=== PATIENT | female | born 1960 | race Caucasian/White ===

== ENCOUNTER 2018-03-11 08:25 | Outpatient (CLI) | payer BC, SELFPAY ==
--- NOTE | 2018-03-11 08:21 | DI.RAD_ITS ---
SYMPTOM/DIAGNOSIS: LT SHOULDER PAIN LEFT SHOULDER: Three views. No priors. There are mild hypertropic changes seen at the acromioclavicular joint. The glenohumeral joint appears well maintained. The bones are intact. There does appear to be mild osteopenia present. No suspicious lytic or sclerotic lesions are seen The soft tissues are unremarkable. IMPRESSION: Mild degenerative changes of the left acromioclavicular joint
== END 2018-03-11 08:45 ==
PROVIDERS: PCP General Practice; Visit Provider Physician Assistant
DX: M25.512 Pain in left shoulder (principal); M19.012 Primary osteoarthritis, left shoulder
CPT/HCPCS: 73030

== ENCOUNTER 2019-04-22 14:03 | Outpatient (REF) | payer OTHER, SELFPAY ==
[2019-04-22 17:23] LABS: ALT 18 U/L (14-59); AST 17 U/L (15-37); Anion Gap 9.4 mmol/L (3-11); BUN 19 mg/dL (7-18); CO2 28.6 mmol/L (21.0-32.0); CREATININE 0.93 mg/dL (0.55-1.02); Calcium 9.1 mg/dL (8.5-10.1); Chloride 105 mmol/L (98-107); Glucose 107 mg/dL (74-106); Potassium 4.4 mmol/L (3.5-5.1); Sodium 143 mmol/L (136-145)
[2019-04-22 18:06] LABS: ESR 11 mm/hr (0-30)
[2019-04-24 10:08] LABS: Cyclic Citrullinated Peptide <2.5 U/mL (<5.0)
[2019-04-24 12:37] LABS: ANA Interpretation Negative (Negative)
== END 2019-04-22 14:23 ==
LOC: NCHCN 14:03
PROVIDERS: PCP Student in an Organized Health Care Education/Training Program; Visit Provider Nurse Practitioner Family
DX: Z51.81 Encounter for therapeutic drug level monitoring (principal); M25.50 Pain in unspecified joint
CPT/HCPCS: 80048; 85652; 86200; 84450; 84460; 86038; 86431

== ENCOUNTER 2019-09-25 09:29 | Emergency (ER) | payer OTHER, SELFPAY ==
[2019-09-25 09:44] VITALS: BP 142/91; PULSE 61; RESP 18; TEMP 36.2; O2SAT 99
--- NOTE | 2019-09-25 10:15 | DI.US_ITS ---
EXAM: US ABDOMEN CLINICAL HISTORY: ruq abdominal pain TECHNIQUE: Ultrasound performed using standard protocol. COMPARISON: No exams were available for comparison FINDINGS: The liver is normal in size and echogenicity. A 2.2 centimeter simple cyst is seen in the left lobe of the liver. The gallbladder has a normal appearance, without evidence of stones or wall thickenin g. No biliary dilatation is seen. There are 2 large cysts seen at the upper and lower poles of the right kidney. No hydronephrosis is seen. Left kidney is unremarkable. The aorta is normal in diame ter. The spleen is normal in size. The pancreas is unremarkable as visualized. IMPRESSION: Right renal cysts and liver cyst. No acute abnormality. DATA REPOSITORY:
--- NOTE | 2019-09-25 10:24 | ED.GENADUL_ITS ---
Discharge Plan Disposition Patient Disposition: HOME Discharge Details Chief Complaint: Nk/Back Pain Clinical Impression: Renal cyst, right, Liver cyst, Ovarian cyst, Back pain, Abdominal pain Primary Care Provider: Raymond Richardson ED Provider: Gianluca Villegas Home Meds and New Rx's Prescriptions: Continued montelukast [Singulair] 10 MG tablet 10 mg PO DAILY RF: 0 FLEXERIL 10 MG tablet 10 mg PO DAILY RF: 0 fluoxetine 20 MG capsule 20 mg PO DAILY RF: 0 calcium carbonate-vitamin D3 1 EACH tablet 1 ea PO DAILY RF: 0 melatonin 10 MG tablet 10 mg PO DAILY RF: 0 sumatriptan succinate [Imitrex] 100 MG tablet 100 mg PO ONCE RF: 0 propranolol 20 mg Tablet 20 mg PO DAILY RF: 0 Discharge Instructions Instructions: Kidney Cyst (ED) Additional Instructions: Please take ibuprofen over the counter. Take 600mg by mouth every 6 hours as needed for pain. Please take acetaminophen (tylenol) - 650mg every 6 hours by mouth as needed for pain. Please contact your primary care physician to arrange follow-up. Return to the ER for any worsening or new concerning symptoms. Stand Alone Forms: Work Release Discharge Data Discharge Date/Time-TO BE ENTERED AT DEPARTURE: 09/25/19 16:02 Medical Decision Making 1030??59-year-old female here with severe right upper quadrant abdominal pain back pain that started this morning and has progressed. Patient is focally tender in the right upper quadrant. A bedside [id number] ultrasound was performed by me. I was able to visualize the gallbladder which did not appear to have any pericholecystic fluid. There was a questionable hyperechoic stone noted. Plan to obtain official right upper quadrant abdominal ultrasound. Will check LFTs and lipase. Of note, colon did appear slightly dilated. We will give Dilaudid 0.5 mg IV for pain. Will give Zofran 4 mg IV for nausea. IV fluid bolus. 1330 --labs reviewed and nondiagnostic. patient reassessed and pain initially improved and now returns requesting additional pain medication. Will give additional dose of Dilaudid IV. Ultrasound of the right upper quadrant was interpreted by radiology: Right renal cyst and liver cyst. No acute abnormality. Plan to proceed to CT the abdomen pelvis to assess for acute surgical pathology. 1515 --CT the abdomen pelvis was interpreted by radiology:Impression: Liver cysts. Two large right renal cysts. No evidence of hydronephrosis. Right ovarian cyst. Unclear etiology for multiple cystic structures. Patient reassessed and pain improved. Patient is stable. Plan for outpatient follow-up with PCP. Usual and customary discharge instructions were reviewed with the patient. HPI General Mode of arrival: ambulatory . Date/Time Provider Initiated Documentation: 09/25/19 09:48 . Limitations to Documentation: no limitations . Information obtained by: patient . HPI Narrative: 59-year-old female presents with chief complaint of abdominal pain. Patient notes she woke this morning with right mid back pain that she thought was a muscle strain. Pain persisted and then started to wrap around to her right upper abdomen. Pain has persisted. She is had associated nausea and vomiting. Pain is currently moderate to severe. No modifiers. She did have a normal bowel movement early this morning. No associated fever. She has had back pain in the past but is never had pain in her abdomen like this. No prior abdominal surgeries. Related Data Home Medications Medication Instructions Recorded Confirmed Flexeril 10 mg PO DAILY 08/28/13 09/25/19 montelukast [Singulair] 10 mg PO DAILY tab-cap 08/28/13 09/25/19 calcium carbonate-vitamin D3 1 ea PO DAILY 01/08/17 09/25/19 fluoxetine 20 mg PO DAILY tab-cap 01/08/17 09/25/19 melatonin 10 mg PO DAILY 01/08/17 09/25/19 sumatriptan succinate [Imitrex] 100 mg PO ONCE tab-cap 03/08/17 09/25/19 propranolol 20 mg PO DAILY 09/25/19 09/25/19 Allergies Allergy/AdvReac Type Severity Reaction Status Date / Time amoxicillin Allergy Intermediate RASH Unverified 09/25/19 09:48 cefaclor [From Ceclor] Allergy Intermediate RASH Unverified 09/25/19 09:48 cephalexin monohydrate Allergy Intermediate RASH Unverified 09/25/19 09:48 [From Keflex] erythromycin base Allergy Intermediate RASH Unverified 09/25/19 09:48 Penicillins Allergy Intermediate RASH Unverified 09/25/19 09:48 sulfamethoxazole Allergy Intermediate RASH Unverified 09/25/19 09:48 [From Bactrim] trimethoprim [From Bactrim] Allergy Intermediate RASH Unverified 09/25/19 09:48 aspirin AdvReac Other (See Unverified 09/25/19 09:49 Comment) General Stated Complaint: Nk/Back Pain ALO: 3 Review of Systems All systems reviewed & are unremarkable except as noted in HPI and below Constitutional Constitutional: Denies fever(s) Cardiovascular Cardiovascular: Denies dyspnea Respiratory Respiratory: Denies dyspnea Gastrointestinal Gastrointestinal: Reports as per HPI Genitourinary Genitourinary: Denies hematuria and Denies dysuria PFSH Surgical History Cervical Procedure Cryo due to friable cvx Dilation and curettage with SAB Ligation of fallopian tube Social History Smoking/Tobacco Use Status: Never Alcohol Intake: current Alcohol Intake frequency: holidays/special occasions only Drug use: Never Substance use type: does not use Do you feel safe at home: Yes Do you feel safe in your relationship?: Yes Exam Const General: cooperative and no acute distress HENMT Mouth: moist mucous membranes Eyes Conjunctivae: normal conjunctivae Sclera: normal sclerae Neck Neck: trachea midline and supple Resp Auscultation: clear to auscultation bilaterally, no rales, no rhonchi and no wheezes Cardio Jugular venous pressure: no JVD Rate: regular rate and not tachycardic Rhythm: regular rhythm GI Inspection: non-distended Palpation: soft, not firm, no guarding, no masses, not rigid and tender in the RUQ; with no rebound tenderness and Rovsing's sign negative Auscultation: normal bowel sounds Skin General skin exam: no rashes or lesions noted Neuro General: patient alert, patient awake and tone normal Extrem General: no edema Psych Appearance: grossly normal Mental Status: mental status grossly normal Course Vital Signs Vital signs: Vital Signs Temperature 36.2 C L 09/25/19 09:44 Pulse 61 09/25/19 09:44 Respiratory Rate 18 09/25/19 09:44 Blood Pressure 142/91 H 09/25/19 09:44 Pulse Oximetry 99 09/25/19 09:44 Temperature 36.2 C L 09/25/19 09:44 Temperature Source Temporal Artery Scan 09/25/19 09:44 Pulse 61 09/25/19 09:44 Respiratory Rate 18 09/25/19 09:44 Respiratory Effort Non-Labored 09/25/19 09:51 Blood Pressure 142/91 H 09/25/19 09:44 Blood Pressure Position Sitting 09/25/19 09:44 Pulse Oximetry 99 09/25/19 09:44 Oxygen Delivery Method Room Air 09/25/19 09:44 Oxygen Flow Rate 0 09/25/19 09:44 Pain Level 10 09/25/19 09:44
[2019-09-25] MEDS: Lactated Ringers 1,000 ML 1000 ML IV (10:31)
[2019-09-25] MEDS: HYDROmorphone 2 MG/ML VIAL 0.5 MG IVP (10:32)
[2019-09-25] MEDS: Ondansetron 4 MG/2 ML VIAL IVP (10:33)
[2019-09-25 10:45] LABS: Lactate 1.4 mmol/L (0.6-1.4)
[2019-09-25 11:05] LABS: ALT 18 U/L (14-59); AST 19 U/L (15-37); Albumin 3.7 g/dL (3.4-5.0); Alkaline Phosphatase 83 U/L (46-116); Anion Gap 3.4 mmol/L (3-11); BUN 15 mg/dL (7-18); CO2 25.6 mmol/L (21.0-32.0); CREATININE 1.08 mg/dL (0.55-1.02); Calcium 8.8 mg/dL (8.5-10.1); Chloride 101 mmol/L (98-107); Estimated GFR 51.58 (mL/min/1.73m2); Glucose 121 mg/dL (74-106); Lipase 145 U/L (73-393); Potassium 3.8 mmol/L (3.5-5.1); Sodium 130 mmol/L (136-145); Total Protein 6.9 g/dL (6.4-8.2)
[2019-09-25 11:08] LABS: Troponin I < 0.05 ng/mL (<0.06)
[2019-09-25 11:33] LABS: Bilirubin Negative (Negative); Blood Negative (Negative); Glucose Negative (Negative); Ketones Negative (Negative); Leukocyte Esterase Negative (Negative); Nitrite Negative (Negative); Urobilinogen 0.2 EU/dL (Up TO 0.2); pH 7.5 (5-8)
[2019-09-25 11:34] LABS: Clarity Sl. Cloudy (Clear)
[2019-09-25 11:46] LABS: Abs Immature Grans 0.02 k/cumm (0.0-0.09); Absolute Basophil Count 0.02 k/cumm (0.0-0.2); Absolute Eosinophil Count 0.11 k/cumm (0.0-0.7); Absolute Lymphocyte Count 1.42 k/cumm (1.2-3.4); Absolute Monocyte Count 0.43 k/cumm (0.11-0.7); Basophils % 0.3; Eosinophils % 1.9; HCT 43.3 % (36.0-46.0); HGB 14.8 g/dL (12.0-15.5); Immature Grans % 0.3 %; Lymphocytes % 24.1; Mean Corp. HGB Concentration 34.2 g/dL (32.0-36.0); Mean Corpuscular Hemoglobin 31.2 pg (27.0-33.0); Mean Corpuscular Volume 91.2 fL (80-95); Mean Platelet Volume 10.4 fL (8.0-11.0); Monocytes % 7.3; Neutrophils % 66.1; Platelet Count 272 x1000/uL (130-400); RBC 4.75 m/cumm (4.00-5.20); RBC Distribution Width 12.8 % (11.7-14.6)
--- NOTE | 2019-09-25 12:00 | DI.CT_ITS ---
EXAM: CT ABDOMEN PELVIS W CLINICAL HISTORY: abdominal pain RUQ, cyst on ultrasound. TECHNIQUE: Imaging Protocol: Axial computed tomography images with coronal and sagittal reformatted images were created and reviewed CONTRAST MATERIAL: Intravenous: Omnipaque 350 Contrast volume:91 cc Oral: no COMPARISON: US US ABDOMEN from 09/25/2019 FINDINGS: ABDOMEN: Lung Bases: Dependent changes. Liver: Normal density. 2.8 centimeters simple appearing cyst at the superior left lobe of the liver. 7 millimeter cyst seen in the inferior right lobe. No suspicious masses. Gallbladder and biliary tract: No radiodense calculus or dilation. Pancreas: Normal density, no abnormal calcifications or inflammatory process. Spleen: Normal. Kidneys: Normal size, contour and axis. No radiodense stones or obstructive uropathy. No masses seen. 7.2 centimeters cyst at the upper pole of the right kidney. 7.9 centimeters cyst at the lower pole the right kidney. Small cysts are seen in the left kidney. Adrenal glands: No masses seen. Abdominal Aorta: Abdominal portion non-dilated. PELVIS: Bladder: Symmetric distention, no gross wall thickening. Bowel: No obstruction or bowel wall thickening. Normal appendix. Moderate quantity of stool. Peritoneal cavity: No ascites, collection or mesenteric inflammatory response. Bones: Degenerative disc changes at L5-S1. Nerve root sheath cyst at S2.. Reproductive organs: 3.8 centimeter simple appearing cyst of the right ovary. Left ovary is unremark able. A small anterior myometrial fibroid is visible.. Lymph nodes: Unremarkable. Impression: Liver cysts. Two large right renal cysts. No evidence of hydronephrosis. Right ovarian cyst.. RADIATION DOSE DELIVERED: 770.03mGy.cm Total DLP DATA REPOSITORY: All CT scans at this facility are submitted to the National Radiology Data Registry (NRDR) Dose Index Registry (DIR) with the [employer] (ACR). RADIATION OPTIMIZATION: All CT scans at this facility use at least one of these dose optimization te chniques: automated exposure control; mA and/or kV adjustment per patient size (includes targeted exa ms where dose is matched to clinical indication); or iterative reconstruction.
[2019-09-25 12:06] VITALS: BP 107/71; PULSE 67; RESP 18; O2SAT 95
[2019-09-25] MEDS: HYDROmorphone 2 MG/ML VIAL 1 MG IVP (12:22)
[2019-09-25] MEDS: Omnipaque 350 MG/ML 100 ML BTL IJ (13:45)
[2019-09-25] MEDS: Normal Saline - Diluent 50 ML VIAL IV (13:46)
[2019-09-25 14:32] VITALS: BP 102/66; PULSE 72; RESP 17; TEMP 36.6; O2SAT 96
== END 2019-09-25 16:02 | disposition home or self-care (01) ==
PROVIDERS: Emergency Provider Student in an Organized Health Care Education/Training Program; PCP Student in an Organized Health Care Education/Training Program
DX: R10.13 Epigastric pain (principal); M54.6 Pain in thoracic spine; K76.89 Other specified diseases of liver; N28.1 Cyst of kidney, acquired; N83.291 Other ovarian cyst, right side
CPT/HCPCS: 36415; 80053; 83690; 96361; 96374; 96375; 96376; 99285; 74177; 76700; 81003; 83605; 84484; 85025; 99284; J2405; J3490

== ENCOUNTER 2019-10-28 16:19 | Outpatient (REF) | payer OTHER, SELFPAY ==
[2019-10-28 20:46] LABS: Anion Gap 8.8 mmol/L (3-11); BUN 22 mg/dL (7-18); CO2 26.2 mmol/L (21.0-32.0); CREATININE 1.03 mg/dL (0.55-1.02); Calcium 8.9 mg/dL (8.5-10.1); Chloride 103 mmol/L (98-107); Estimated GFR 54.48 (mL/min/1.73m2); Glucose 100 mg/dL (74-106); Potassium 4.1 mmol/L (3.5-5.1); Sodium 138 mmol/L (136-145)
== END 2019-10-28 16:39 ==
LOC: NCHCN 16:19
PROVIDERS: PCP Family Medicine; Visit Provider Nurse Practitioner Family
DX: N28.1 Cyst of kidney, acquired (principal); E87.1 Hypo-osmolality and hyponatremia
CPT/HCPCS: 80048

== ENCOUNTER 2019-11-08 10:05 | Emergency (ER) | payer OTHER, SELFPAY ==
--- NOTE | 2019-11-08 10:00 | DI.RAD_ITS ---
EXAM: XR FOOT LT COMPLETE CLINICAL HISTORY: fall, pain over 3,4,5 metatarsal TECHNIQUE: COMPARISON: No exams were available for comparison FINDINGS: Three views were obtained. There is a comminuted moderately displaced fracture of 4th metatarsal taurus physis with an associated mildly displaced fracture of the 5th metatarsal distal diaphysis. No addit ional fracture seen. IMPRESSION:
--- NOTE | 2019-11-08 10:06 | ED.GENADUL_ITS ---
Discharge Plan Disposition Patient Disposition: HOME Condition: Good Discharge Details Chief Complaint: Orthopedic Clinical Impression: Foot fracture, left Primary Care Provider: Ashley Amaro ED Provider: Jessie Oh Home Meds and New Rx's Prescriptions: Continued montelukast [Singulair] 10 MG tablet 10 mg PO DAILY RF: 0 FLEXERIL 10 MG tablet 10 mg PO DAILY RF: 0 fluoxetine 20 MG capsule 20 mg PO DAILY RF: 0 calcium carbonate-vitamin D3 1 EACH tablet 1 ea PO DAILY RF: 0 melatonin 10 MG tablet 10 mg PO DAILY RF: 0 sumatriptan succinate [Imitrex] 100 MG tablet 100 mg PO ONCE RF: 0 propranolol 20 mg Tablet 20 mg PO DAILY RF: 0 dexamethasone 4 mg Tablet 4 mg PO PRNRF: 0 Discharge Instructions Instructions: Foot Fracture in Adults (ED) Additional Instructions: Encourage rest, ice, elevation. Tylenol and/or ibuprofen as needed for discomfort. Please continue with the postoperative shoe and crutches until reevaluated by orthopedics. Please call orthopedics on Sunday to schedule follow-up appointment. If you develop new or worsening symptoms please seek care urgently Referrals: Ashley Amaro [Primary Care Provider] - Young Mccurdy MD [ [facility] STAFF PHYSICIAN] - Medical Decision Making Patient is a pleasant 59-year-old female presented with chief complaint of left foot pain. She reports a prior to arrival she was going upstairs carrying a vacuum when she missed stepped and suffered a internal rotational injury to the left foot. She indicates the third, fourth and fifth metatarsals area of discomfort. Also notable swelling to the lateral aspect of the foot. She denies any numbness or tingling. She denies other injury the time of the incident. On exam, patient is resting comfortably. She has notable swelling as indicated. 2+ distal pulses, brisk capillary refill, sensation is intact. She is no pain in the arch with palpation. No pain at the ankle or Achilles. Plan for imaging. She did take Advil prior to arrival, will augment with Tylenol. XR reviewed by radiologist: FINDINGS: Bones/joints: There is a comminuted fracture involving the 4th digit metatarsal with moderate displacement of the bony fragments. Minimally displaced comminuted fracture of the 5th digit metatarsal. No other acute fractures or dislocation. Scattered bony degenerative changes. Soft tissues: Prominent soft tissue swelling about sites of injury. IMPRESSION: Comminuted acute appearing fractures of the 4th and 5th metatarsals. 50 findings with the patient. I encouraged rest, ice, elevation. Tylenol and/or ibuprofen as needed for discomfort. She will be fitted with a postop shoe. She does have crutches and will remain nonweightbearing. Patient was given return precautions. Dr. barahona plans to see her on Sunday. She will call to schedule appointment. All of her questions and concerns were addressed and she is in agreement this plan. HPI General Mode of arrival: wheelchair . Date/Time Provider Initiated Documentation: 11/08/19 10:06 . Limitations to Documentation: no limitations . Information obtained by: patient and RN notes reviewed . History of Present Illness 59 year old F presents to the emergency department with the chief complaint of left foot pain, described as moderate, Quality is described as aching, and is localized to the left. Patient reports no radiation. Patient started experiencing this minute(s) and it has been constant. Immobilization improves symptom(s), Movement worsens symptoms . Patient notes no other symptoms.. Patient did receive the following treatments prior to arrival, NSAID Related Data Home Medications Medication Instructions Recorded Confirmed Flexeril 10 mg PO DAILY 08/28/13 11/08/19 montelukast [Singulair] 10 mg PO DAILY tab-cap 08/28/13 11/08/19 calcium carbonate-vitamin D3 1 ea PO DAILY 01/08/17 11/08/19 fluoxetine 20 mg PO DAILY tab-cap 01/08/17 11/08/19 melatonin 10 mg PO DAILY 01/08/17 11/08/19 sumatriptan succinate [Imitrex] 100 mg PO ONCE tab-cap 03/08/17 11/08/19 propranolol 20 mg PO DAILY 09/25/19 11/08/19 dexamethasone 4 mg PO PRN 11/08/19 Allergies Allergy/AdvReac Type Severity Reaction Status Date / Time amoxicillin Allergy Intermediate RASH Unverified 11/08/19 10:14 cefaclor [From Ceclor] Allergy Intermediate RASH Unverified 11/08/19 10:14 cephalexin monohydrate Allergy Intermediate RASH Unverified 11/08/19 10:14 [From Keflex] erythromycin base Allergy Intermediate RASH Unverified 11/08/19 10:14 Penicillins Allergy Intermediate RASH Unverified 07/11/20 10:14 sulfamethoxazole Allergy Intermediate RASH Unverified 11/08/19 10:14 [From Bactrim] trimethoprim [From Bactrim] Allergy Intermediate RASH Unverified 11/08/19 10:14 aspirin AdvReac Other (See Unverified 11/08/19 10:14 Comment) General ALO: 3 Review of Systems Constitutional Constitutional: Reports as per HPI, Denies chills, Denies fever(s), Denies headache(s) and Denies weakness ENT Ears, Nose, Mouth, and Throat: Denies headache(s) Cardiovascular Cardiovascular: Reports as per HPI Respiratory Respiratory: Reports as per HPI and Denies cough Musculoskeletal Musculoskeletal: Reports as per HPI, Reports abnormal gait (difficulty ambulating secondary to left foot pain) and Denies tingling Integumentary/Breasts Skin/Breast: Reports as per HPI, Denies rash and Denies wounds Neurologic Neurologic: Reports as per HPI, Reports abnormal gait (difficulty ambulating secondary to left foot pain), Denies headache(s), Denies tingling, Denies paresthesias and Denies weakness [facility] Surgical History Cervical Procedure Cryo due to friable cvx Dilation and curettage with SAB Ligation of fallopian tube Social History Smoking/Tobacco Use Status: Never Alcohol Intake: current Alcohol Intake frequency: holidays/special occasions only Drug use: Never Substance use type: does not use Do you feel safe at home: Yes Do you feel safe in your relationship?: Yes Exam Const General: cooperative, healthy appearing, comfortable, no acute distress, well developed and well groomed Nutritional Appearance: average body habitus and well nourished Orientation: alert and awake Resp Effort & Inspection: normal respiratory effort, able to speak in complete sentences and no respiratory distress Cardio Rate: regular rate Rhythm: regular rhythm Skin General skin exam: no rashes or lesions noted Lesions: no lesions Rashes: no rashes Trauma: no lacerations or abrasions Neuro General: patient alert and patient awake Cognition: normal cognition Speech: speech normal Gait: normal gait Motor: muscle tone normal throughout Sensory Exam: no sensory deficits noted Extrem Ankle/foot/toe images: 1. area of swelling and pain. No palpable deformity. Able to range toes although this causes pain. Brisk capillary refill, sensation intact. Pain starts at proximal 5th metatarsal. 2+ distal pulses. No pain with palpation over the midfoot dorsal or plantar side. No pain with palpation of the ankle,no swelling. Achilles normal. Psych Appearance: grossly normal and well kempt Mental Status: mental status grossly normal Speech and Movement: speech and movement normal
[2019-11-08 10:11] VITALS: BP 132/87; PULSE 77; RESP 16; TEMP 36.7; O2SAT 98
[2019-11-08] MEDS: Acetaminophen 500 MG TAB 1000 MG PO (10:15)
--- NOTE | 2019-11-08 10:51 | DI.VRAD_ITS ---
PROCEDURE INFORMATION: Exam: XR Left Foot Complete Exam date and time: 11/08/2019 10:33 AM Age: 59 years old Clinical indication: Other: Fall, pain over 3,4,5 metatarsals TECHNIQUE: Imaging protocol: XR Left foot. Views: 3 or more views. COMPARISON: No relevant images were readily available for comparison purposes. FINDINGS: Bones/joints: There is a comminuted fracture involving the 4th digit metatarsal with moderate displacement of the bony fragments. Minimally displaced comminuted fracture of the 5th digit metatarsal. No other acute fractures or dislocation. Scattered bony degenerative changes. Soft tissues: Prominent soft tissue swelling about sites of injury. IMPRESSION: Comminuted acute appearing fractures of the 4th and 5th metatarsals. Dictated and Authenticated by: Nathan Harris MD. Ordering:KIERAN Roman MD
== END 2019-11-08 11:24 | disposition home or self-care (01) ==
PROVIDERS: Emergency Provider Physician Assistant; PCP Family Medicine
DX: S92.342A Displaced fracture of fourth metatarsal bone, left foot, initial encounter for closed fracture (principal); S92.352A Displaced fracture of fifth metatarsal bone, left foot, initial encounter for closed fracture; W10.8XXA Fall (on) (from) other stairs and steps, initial encounter
CPT/HCPCS: 28470; 73630

== ENCOUNTER 2019-12-02 15:50 | Outpatient (CLI) | payer OTHER, SELFPAY ==
--- NOTE | 2019-12-02 13:45 | DI.RAD_ITS ---
EXAM: XR FOOT LT LIMITED CLINICAL HISTORY: fu left foot fracture TECHNIQUE: COMPARISON: CR,XR XR FOOT LT COMPLETE from 11/08/2019 FINDINGS: Two views were obtained. Previous described fractures 4th and 5th metatarsals are again noted with l ittle interval change in appearance in comparison with the prior radiographs of November 07. There is increasing callus formation the fracture sites. IMPRESSION:
== END 2019-12-02 16:10 ==
PROVIDERS: PCP Family Medicine; Referring Provider Family Medicine; Visit Provider Student in an Organized Health Care Education/Training Program
DX: S92.342D Displaced fracture of fourth metatarsal bone, left foot, subsequent encounter for fracture with routine healing (principal); S92.352D Displaced fracture of fifth metatarsal bone, left foot, subsequent encounter for fracture with routine healing
CPT/HCPCS: 73620

== ENCOUNTER 2020-01-06 14:09 | Outpatient (CLI) | payer OTHER, SELFPAY ==
--- NOTE | 2020-01-06 13:39 | DI.RAD_ITS ---
EXAM: XR FOOT LT COMPLETE INDICATION: f/u fracture. COMPARISON: No exams were available for comparison TECHNIQUE: 2D digital imaging was performed. FINDINGS: There has been no change in the alignment of the fractures of the distal 4th and 5th metatarsals. Th ere is increased callus formation around the fractures indicating further healing. DATA REPOSITORY: RADIATION DOSE DELIVERED:
== END 2020-01-06 14:29 ==
PROVIDERS: PCP Family Medicine; Referring Provider Family Medicine; Visit Provider Student in an Organized Health Care Education/Training Program
DX: S92.342D Displaced fracture of fourth metatarsal bone, left foot, subsequent encounter for fracture with routine healing (principal); S92.352D Displaced fracture of fifth metatarsal bone, left foot, subsequent encounter for fracture with routine healing
CPT/HCPCS: 73630

== ENCOUNTER 2020-01-12 14:06 | Outpatient (REF) | payer SELFPAY ==
[2020-01-15 13:36] LABS: Patient Race White; SARS-CoV-2 RNA Undetected (Undetected); SARS-CoV-2 Specimen Source Nasal
== END 2020-01-12 14:26 ==
LOC: NCHCN 14:06
PROVIDERS: PCP Family Medicine; Visit Provider Family Medicine
DX: Z20.828 Contact with and (suspected) exposure to other viral communicable diseases (principal)
CPT/HCPCS: U0003

== ENCOUNTER 2020-02-03 00:45 | Outpatient (CLI) | payer OTHER, SELFPAY ==
--- NOTE | 2020-02-03 | DI.MAMMO_ITS ---
EXAM: MAMMO SCREENING CLINICAL HISTORY: SCREENING,Z12.39 TECHNIQUE: Mammograms were interpreted according to the usual protocol including computer analysis w [employer] CAD system, tomosynthesis and C-view imaging. COMPARISON: FINDINGS: The breasts are of moderate density with fairly symmetrical distribution of fibroglandular tissue. N o dominant mass or clumped microcalcification is identified in either breast. The current examinatio n is compared with previous examination August 2013 and there has been no gross interval change in appea janene in comparison with the prior study. IMPRESSION: No specific evidence of malignancy at this time. Routine screening examinations are suggested at yea rly intervals in this age group according to the ACS ACR guidelines. BI-RADS Cat 1 - Negative Breast Density - Category B - Scattered areas of fibroglandular density
== END 2020-02-03 01:05 ==
PROVIDERS: PCP Family Medicine; Visit Provider Nurse Practitioner Family
DX: Z12.31 Encounter for screening mammogram for malignant neoplasm of breast (principal)
CPT/HCPCS: 77063; 77067

== ENCOUNTER 2020-03-15 15:15 | Outpatient (REF) | payer SELFPAY ==
[2020-03-18 09:04] LABS: SARS-CoV-2 RNA Not Detected (NotDetected); SARS-CoV-2 RNA Source Nasal/Nares
== END 2020-03-15 15:35 ==
LOC: NCHCN 15:15
PROVIDERS: PCP Family Medicine; Visit Provider Nurse Practitioner Family
DX: Z11.59 Encounter for screening for other viral diseases (principal)
CPT/HCPCS: U0003

== ENCOUNTER 2020-03-17 17:21 | Outpatient (REF) | payer OTHER, SELFPAY ==
[2020-03-17 22:11] LABS: ALT 17 U/L (14-59); AST 14 U/L (15-37); Albumin 3.6 g/dL (3.4-5.0); Alkaline Phosphatase 106 U/L (46-116); Anion Gap 6.9 mmol/L (3-11); BUN 21 mg/dL (7-18); Bilirubin, Total 0.6 mg/dL (0.2-1.0); CO2 28.1 mmol/L (21.0-32.0); Chloride 103 mmol/L (98-107); Estimated GFR 56.18 (mL/min/1.73m2); Glucose 121 mg/dL (74-106); Potassium 5.1 mmol/L (3.5-5.1); Sodium 138 mmol/L (136-145); Total Protein 6.5 g/dL (6.4-8.2)
== END 2020-03-17 17:41 ==
LOC: NCHCN 17:21
PROVIDERS: PCP Family Medicine; Visit Provider Nurse Practitioner Family
DX: E87.1 Hypo-osmolality and hyponatremia (principal); N28.1 Cyst of kidney, acquired
CPT/HCPCS: 80048; 80076

== ENCOUNTER 2020-10-01 16:17 | Outpatient (REF) | payer OTHER, SELFPAY ==
[2020-10-01 21:16] LABS: ALT 21 U/L (14-59); AST 15 U/L (15-37); Albumin 3.7 g/dL (3.4-5.0); Alkaline Phosphatase 94 U/L (46-116); Bilirubin, Total 0.6 mg/dL (0.2-1.0); Total Protein 6.5 g/dL (6.4-8.2)
[2020-10-01 21:25] LABS: Bilirubin, Direct 0.1 mg/dL (0.0-0.2)
== END 2020-10-01 16:18 | disposition home or self-care (01) ==
LOC: NCHCN 16:17
PROVIDERS: PCP Family Medicine; Visit Provider Nurse Practitioner Family
DX: E87.1 Hypo-osmolality and hyponatremia (principal); N28.1 Cyst of kidney, acquired; K76.89 Other specified diseases of liver
CPT/HCPCS: 80076

== ENCOUNTER 2020-10-07 15:18 | Outpatient (REF) | payer OTHER, SELFPAY ==
[2020-10-07 20:51] LABS: Anion Gap 8.6 mmol/L (3-11); BUN 19 mg/dL (7-18); CO2 28.4 mmol/L (21.0-32.0); Calcium 9.1 mg/dL (8.5-10.1); Chloride 106 mmol/L (98-107); Estimated GFR 56.18 (mL/min/1.73m2); Glucose 87 mg/dL (74-106); Potassium 4.6 mmol/L (3.5-5.1); Sodium 143 mmol/L (136-145)
== END 2020-10-07 15:19 | disposition home or self-care (01) ==
LOC: NCHCN 15:18
PROVIDERS: PCP Family Medicine; Visit Provider Nurse Practitioner Family
DX: E87.1 Hypo-osmolality and hyponatremia (principal); N28.1 Cyst of kidney, acquired; K76.89 Other specified diseases of liver
CPT/HCPCS: 80048

== ENCOUNTER 2020-12-01 21:20 | Outpatient (REF) | payer OTHER, SELFPAY ==
[2020-12-02 20:43] LABS: COVID-19 RT-PCR UVMMC Result Negative (Negative)
== END 2020-12-01 21:21 | disposition home or self-care (01) ==
LOC: NCHCN 21:20
PROVIDERS: PCP Family Medicine; Visit Provider Nurse Practitioner Family
DX: Z20.822 Contact with and (suspected) exposure to COVID-19 (principal)
CPT/HCPCS: U0003

== ENCOUNTER 2021-03-18 15:36 | Outpatient (REF) | payer OTHER, SELFPAY ==
[2021-03-19 11:06] LABS: COVID-19 RT-PCR UVMMC Result Negative (Negative)
== END 2021-03-18 15:37 | disposition home or self-care (01) ==
LOC: NCHCN 15:36
PROVIDERS: PCP Family Medicine; Visit Provider Nurse Practitioner Family
DX: Z20.822 Contact with and (suspected) exposure to COVID-19 (principal)
CPT/HCPCS: U0003

== ENCOUNTER 2021-03-22 14:06 | Outpatient (REF) | payer OTHER, SELFPAY ==
[2021-03-23 04:05] LABS: COVID-19 RT-PCR UVMMC Result Negative (Negative)
== END 2021-03-22 14:07 | disposition home or self-care (01) ==
LOC: NCHCN 14:06
PROVIDERS: PCP Family Medicine; Visit Provider Nurse Practitioner Family
DX: Z20.822 Contact with and (suspected) exposure to COVID-19 (principal)
CPT/HCPCS: U0003

== ENCOUNTER 2021-04-21 11:03 | Outpatient (REF) | payer OTHER, SELFPAY ==
[2021-04-21 14:46] LABS: HCT 42.5 % (36.0-46.0); MCH 30.8 pg (27.0-33.0); MCHC 32.9 % (32.0-36.0); MCV 93.6 fL (80-95); MPV 10.6 fL (8.0-11.0); Platelet Count 271 10^3/uL (130-400); RBC 4.54 10^6/uL (3.93-5.22); RDW 12.2 % (11.7-14.6); RDW-SD 42.5 fL; WBC 7.64 10^3/uL (4.4-10.8)
[2021-04-21 15:05] LABS: ALT 26 U/L (14-59); AST 12 U/L (15-37); Albumin 3.7 g/dL (3.4-5.0); Alkaline Phosphatase 86 U/L (46-116); Anion Gap 7.1 mmol/L (3-11); BUN 17 mg/dL (7-18); Bilirubin, Total 0.9 mg/dL (0.2-1.0); CO2 29.9 mmol/L (21.0-32.0); CREATININE 1.1 mg/dL (0.55-1.02); Calcium 8.9 mg/dL (8.5-10.1); Calculated LDL 168 mg/dL (<100); Chloride 105 mmol/L (98-107); Cholesterol 247 mg/dL (<200); Estimated GFR 50.17 (mL/min/1.73m2); Glucose 93 mg/dL (74-106); HDL Cholesterol 62 mg/dL (40-60); Potassium 4.3 mmol/L (3.5-5.1); Sodium 142 mmol/L (136-145); Total Protein 6.4 g/dL (6.4-8.2); Triglyceride 86 mg/dL (<150)
[2021-04-21 15:21] LABS: Vitamin D 25 Total 70.7 ng/mL (30-100)
== END 2021-04-21 11:04 | disposition home or self-care (01) ==
LOC: NCHCN 11:03
PROVIDERS: PCP Family Medicine; Visit Provider Nurse Practitioner Family
DX: Z00.00 Encounter for general adult medical examination without abnormal findings (principal); K76.89 Other specified diseases of liver; N28.1 Cyst of kidney, acquired; E78.5 Hyperlipidemia, unspecified; E87.1 Hypo-osmolality and hyponatremia; E55.9 Vitamin D deficiency, unspecified
CPT/HCPCS: 80053; 80061; 82306; 85027

== ENCOUNTER 2021-05-20 00:43 | Outpatient (CLI) | payer OTHER, SELFPAY ==
--- NOTE | 2021-05-20 09:00 | DI.DEXA_ITS ---
Exam(s) XR DEXA BONE DENSITY W/WO ANGEL EXAM: XR DEXA BONE DENSITY W/WO ANGEL CLINICAL HISTORY: OSTEOPENIA, M85.80 TECHNIQUE: BTCJam C densitometer COMPARISON: No exams were available for comparison FINDINGS: Lateral view of the thoracic and lumbar spine shows no evidence of compression fractures. Bone mineral density measurements of the lumbar spine correspond to a total T-score of -2.2, in the osteopenic range. Bone mineral density measurements of the left hip correspond to a total T-score of -1.3. The femora l neck T-score is -1.9, in the osteopenic range.. The left forearm bone mineral density measurements correspond to a T-score of the distal 3rd of -2.9, in the osteoporotic range. . IMPRESSION: Osteoporosis of the left forearm. Osteopenia of the lumbar spine and left hip.
== END 2021-05-20 01:03 ==
PROVIDERS: PCP Family Medicine; Visit Provider Nurse Practitioner Family
DX: M81.0 Age-related osteoporosis without current pathological fracture (principal); M85.88 Other specified disorders of bone density and structure, other site
CPT/HCPCS: 77080

== ENCOUNTER 2021-05-25 16:03 | Outpatient (REF) | payer OTHER, SELFPAY ==
[2021-05-26 00:27] LABS: COVID-19 RT-PCR UVMMC Result Negative (Negative)
== END 2021-05-25 16:04 | disposition home or self-care (01) ==
LOC: NCHCN 16:03
PROVIDERS: PCP Family Medicine; Visit Provider Nurse Practitioner Family
DX: Z20.822 Contact with and (suspected) exposure to COVID-19 (principal)
CPT/HCPCS: U0003

== ENCOUNTER 2021-05-31 00:14 | Outpatient (CLI) | payer OTHER, SELFPAY ==
--- NOTE | 2021-05-31 13:39 | DI.MAMMO_ITS ---
Exam(s) US BREAST RT LIMITED MG MAMMO DIAGNOSTIC BI US BREAST LT LIMITED EXAM: MG MAMMO DIAGNOSTIC BI and bilateral U/S breast limited CLINICAL HISTORY: SAIRA BREAST LUMPS, N63.0. TECHNIQUE: Craniocaudal and mediolateral oblique Full Field Digital Mammography views of the bilater al breast with Computer Aided Diagnosis followed by Tomosynthesis and bilateral breast ultrasound. COMPARISON: Priors available for comparison. FINDINGS: Mammography/Tomosynthesis: Masses/Architectural Distortion: None seen. Microcalcifictions: No suspicious pleomorphic-type are seen. Skin Thickening/Nipple Retraction: None. Bilateral limited breast US: Echotexture: Normal appearance of the glandular tissue. Shadowing: No suspicious foci. Cyst: None. Solid lesions: None seen. Ductal dilation: None. IMPRESSION: 1. No evidence of malignancy is noted. 2. Unless there is more urgent need, follow-up screening mammography is recommended, as per [employer] guidelines. 3. The findings were discussed with the patient on the date of the examination. BI-RADS Category 1 - Negative Breast Density - Category B - Scattered areas of fibroglandular density Breast density Category C or D implies that the patient has dense breast tissue. Dense breast tissue can make it harder to find cancer on a mammogram. Dense breast tissue is also associated with an incr eased risk of breast cancer. This information about the result of the mammogram report was provided to the patient to raise their awareness. Use this report when you speak with the patient about their risks for breast cancer, which includes their family history. At that time, you may recommend additional screening tests (Ultrasoun d or MRI) as these tests may add significant information. A negative radiographic report should not delay biopsy if a dominant or clinically suspicious mass is present. Up to ten percent of cancers are not identified on mammography. A negative report may reinforce clinical impression. Adenosis and dense breasts may obscure an underlying neoplasm. False positive reports average 6 to 10%. Patient will receive a letter notifying them of these results.
== END 2021-05-31 00:34 ==
PROVIDERS: PCP Family Medicine; Visit Provider Nurse Practitioner Family
DX: N63.10 Unspecified lump in the right breast, unspecified quadrant (principal); N63.20 Unspecified lump in the left breast, unspecified quadrant
CPT/HCPCS: 76642; 77062; 77066; G0279

== ENCOUNTER 2021-07-20 09:02 | Outpatient (REF) | payer OTHER, SELFPAY ==
--- NOTE | 2021-07-20 08:30 | PAPFT_PTH ---
PATIENT: Leonor Wallace LOC: [facility]#:[id number] AGE/SX: 61/F ROOM: RE07/20/[address]: Chanelle Sesay : 1960 BED: DIS: 07/20/2021 SPEC #: [id number] RECD: 07/20/21 17:26 STATUS: GRIS REMaddy #: [id number] ANTOINE: 07/20/21 08:[address]: Chanelle Sesay DEPT: [facility] Cytology RECD BY: Britney Crow ENTERED: 07/20/21 17:27 SP TYPE: PAPFT OTHR DR: Ashley Amaro Tissues: 1 - CX/ENDOCX FOR PAP SMEARS Procedures: PAP THIN PREP/[facility] Screening HPV DNA PROBE Comments: [id number] (HPV 16 & 18/45)
== END 2021-07-20 09:03 | disposition home or self-care (01) ==
LOC: NCHCN 09:02
PROVIDERS: PCP Family Medicine; Visit Provider Nurse Practitioner Family
DX: Z12.4 Encounter for screening for malignant neoplasm of cervix (principal); Z11.51 Encounter for screening for human papillomavirus (HPV); R87.810 Cervical high risk human papillomavirus (HPV) DNA test positive
CPT/HCPCS: 88142; 87624

== ENCOUNTER 2021-11-24 12:56 | Outpatient (REF) | payer OTHER, SELFPAY ==
[2021-11-24 15:16] LABS: Anion Gap 6.7 mmol/L (3-11); BUN 18 mg/dL (7-18); C-Reactive Protein 0.19 mg/dL (0.0-0.3); CO2 27.3 mmol/L (21.0-32.0); Calcium 9.6 mg/dL (8.5-10.1); Chloride 105 mmol/L (98-107); Glucose 99 mg/dL (74-106); Potassium 4.2 mmol/L (3.5-5.1); Sodium 139 mmol/L (136-145); TSH (W/Ref FT4) 1.68 uIU/mL (0.36-3.74)
[2021-11-24 15:20] LABS: ESR 9 mm/hr (0-30)
[2021-11-24 22:22] LABS: Rheumatoid Factor <8.6 IU/mL (<12.0)
[2021-11-25 10:58] LABS: Lyme Ab w Rflx to Lyme Confirm Negative (Negative)
[2021-11-25 15:28] LABS: ANA Interpretation Negative (Negative)
[2021-11-30 09:39] LABS: Anaplasma phagocytophilum Negative (Negative); B. miyamotoi PCR Negative (Negative); Babesia divergens/MO-1 Negative (Negative); Babesia duncani Negative (Negative); Babesia microti Negative (Negative); Ehrlichia chaffeensis Negative (Negative); Ehrlichia ewingii/canis Negative (Negative); Ehrlichia muris eauclairensis Negative (Negative)
== END 2021-11-24 12:57 | disposition home or self-care (01) ==
LOC: NCHCN 12:56
PROVIDERS: PCP Family Medicine; Visit Provider Nurse Practitioner Family
DX: M79.601 Pain in right arm (principal); L65.9 Nonscarring hair loss, unspecified; N28.1 Cyst of kidney, acquired; E87.1 Hypo-osmolality and hyponatremia
CPT/HCPCS: 80048; 85652; 87798; 84443; 86038; 86140; 86431; 86618

== ENCOUNTER 2022-07-04 13:47 | Outpatient (REF) | payer BC, SELFPAY ==
[2022-07-04 15:19] LABS: HCT 44.2 % (36.0-46.0); HGB 14.8 g/dL (11.2-15.7); MCH 31.5 pg (27.0-33.0); MCHC 33.5 % (32.0-36.0); MCV 94 fL (80-95); MPV 10.3 fL (8.0-11.0); Platelet Count 236 10^3/uL (130-400); RDW 12.3 % (11.7-14.6); RDW-SD 42.3 fL; WBC 6.52 10^3/uL (4.4-10.8)
[2022-07-04 15:34] LABS: ALT 29 U/L (14-59); AST 20 U/L (15-37); Alkaline Phosphatase 102 U/L (46-116); BUN 12 mg/dL (7-18); Bilirubin, Total 0.8 mg/dL (0.2-1.0); Calcium 9.7 mg/dL (8.5-10.1); Chloride 105 mmol/L (98-107); Estimated GFR 62.91 (mL/min/1.73m2); Glucose 79 mg/dL (74-106); Potassium 4.9 mmol/L (3.5-5.1); Sodium 142 mmol/L (136-145)
== END 2022-07-04 13:48 | disposition home or self-care (01) ==
LOC: NCHCN 13:47
PROVIDERS: PCP Nurse Practitioner Family; Visit Provider Nurse Practitioner Family
DX: Z00.00 Encounter for general adult medical examination without abnormal findings (principal); E55.9 Vitamin D deficiency, unspecified
CPT/HCPCS: 80053; 82306; 85027

== ENCOUNTER 2023-04-27 16:11 | Outpatient (REF) | payer BC, SELFPAY ==
[2023-04-27 21:07] LABS: Abs Immature Grans 0.02 10^3/uL (0.0-0.06); Absolute Basophil Count 0.04 10^3/uL (0.0-0.2); Absolute Eosinophil Count 0.23 10^3/uL (0.0-0.7); Absolute Lymphocyte Count 2.07 10^3/uL (1.2-3.4); Absolute Neutrophil Count 4.57 10^3/uL (1.2-6.7); Basophils % 0.5; HGB 13.3 g/dL (11.2-15.7); Immature Grans % 0.3; Lymphocytes % 27.1; MCH 31.6 pg (27.0-33.0); MCHC 34.1 % (32.0-36.0); MCV 93 fL (80-95); Monocytes % 9.2; Neutrophils % 59.9; Platelet Count 260 10^3/uL (130-400); RBC 4.21 10^6/uL (3.93-5.22); RDW 12.1 % (11.7-14.6); RDW-SD 40.9 fL; WBC 7.63 10^3/uL (4.4-10.8)
[2023-04-27 21:27] LABS: ALT 23 U/L (14-59); AST 13 U/L (15-37); Albumin 3.5 g/dL (3.4-5.0); Alkaline Phosphatase 66 U/L (46-116); Anion Gap 7.1 mmol/L (3-11); BUN 11 mg/dL (7-18); Bilirubin, Total 0.9 mg/dL (0.2-1.0); CO2 25.9 mmol/L (21.0-32.0); Calcium 9.1 mg/dL (8.5-10.1); Chloride 105 mmol/L (98-107); Estimated GFR 62.52 (mL/min/1.73m2); Glucose 116 mg/dL (74-106); Potassium 3.8 mmol/L (3.5-5.1); Sodium 138 mmol/L (136-145); TSH (W/Ref FT4) 0.91 uIU/mL (0.36-3.74); Total Protein 6.3 g/dL (6.4-8.2)
== END 2023-04-27 16:12 | disposition home or self-care (01) ==
LOC: NCHCN 16:11
PROVIDERS: PCP Nurse Practitioner Family; Visit Provider Nurse Practitioner Family
DX: R11.0 Nausea (principal)
CPT/HCPCS: 80053; 84443; 85025

== ENCOUNTER 2023-09-18 09:19 | Outpatient (REF) | payer BC, SELFPAY ==
[2023-09-18 14:29] LABS: HCT 41.6 % (36.0-46.0); MCH 31.5 pg (27.0-33.0); MCHC 33.7 % (32.0-36.0); MCV 94 fL (80-95); MPV 10.4 fL (8.0-11.0); Platelet Count 274 10^3/uL (130-400); RBC 4.44 10^6/uL (3.93-5.22); RDW 12.1 % (11.7-14.6); RDW-SD 41.9 fL; WBC 5.27 10^3/uL (4.4-10.8)
[2023-09-18 15:01] LABS: ALT 22 U/L (14-59); AST 17 U/L (15-37); Albumin 3.8 g/dL (3.4-5.0); Alkaline Phosphatase 85 U/L (46-116); Anion Gap 5.8 mmol/L (3-11); BUN 21 mg/dL (7-18); Bilirubin, Total 0.8 mg/dL (0.2-1.0); CO2 27.2 mmol/L (21.0-32.0); Calcium 9.3 mg/dL (8.5-10.1); Calculated LDL 138 mg/dL (<100); Chloride 107 mmol/L (98-107); Cholesterol 226 mg/dL (<200); Estimated GFR 62.52 (mL/min/1.73m2); Glucose 98 mg/dL (74-106); HDL Cholesterol 74 mg/dL (40-60); Potassium 4.4 mmol/L (3.5-5.1); Sodium 140 mmol/L (136-145); Total Protein 6.6 g/dL (6.4-8.2); Triglyceride 72 mg/dL (<150)
== END 2023-09-18 09:20 | disposition home or self-care (01) ==
LOC: NCHCN 09:19
PROVIDERS: PCP Nurse Practitioner Family; Visit Provider Nurse Practitioner Family
DX: E78.5 Hyperlipidemia, unspecified (principal); K76.9 Liver disease, unspecified
CPT/HCPCS: 80053; 80061; 85027

== ENCOUNTER 2023-09-21 13:48 | Outpatient (REF) | payer BC, SELFPAY ==
--- NOTE | 2023-09-21 08:00 | PAPFT_PTH ---
PATIENT: Leonor Wallace LOC: [facility]#:[id number] AGE/SX: 63/F ROOM: RE09/21/[address]: Chanelle Sesay : 1960 BED: DIS: 09/21/2023 SPEC #: [id number] RECD: 09/21/23 17:54 STATUS: GRIS REMaddy #: [id number] ANTOINE: 09/21/23 08:[address]: Chanelle Sesay DEPT: [facility] Cytology RECD BY: Britney Crow Tissues: 1 - CX/ENDOCX FOR PAP SMEARS Procedures: PAP THIN PREP/UVM Screening HPV DNA PROBE Comments: [id number]
== END 2023-09-21 13:49 | disposition home or self-care (01) ==
LOC: NCHCN 13:48
PROVIDERS: PCP Nurse Practitioner Family; Visit Provider Nurse Practitioner Family
DX: Z12.4 Encounter for screening for malignant neoplasm of cervix (principal); Z11.51 Encounter for screening for human papillomavirus (HPV); R87.610 Atypical squamous cells of undetermined significance on cytologic smear of cervix (ASC-US)
CPT/HCPCS: 88142; 87624

== ENCOUNTER → 2023-10-05 02:51 | Outpatient (CLI) | payer BC, SELFPAY ==
--- NOTE | 2023-10-05 12:54 | DI.MAMMO_ITS ---
Exam(s) MAMMO SCREENING EXAM: MAMMO SCREENING CLINICAL HISTORY: SCREENING MAMMO FOR BREAST CANCER Z12.39 TECHNIQUE: Bilateral full field digital CC and MLO mammographic images were obtained with 3D tomosyn thesis and utilizing computer aided detection (CAD). COMPARISON: Available for comparison. FINDINGS: Masses/Architectural Distortion: None seen. Microcalcifications: No suspicious pleomorphic-type are seen. Skin Thickening/Nipple Retraction: None. IMPRESSION: 1. No significant interval change with no specific features of malignancy noted. 2. Unless there is more urgent need, screening mammography is recommended, as per [employer] guidelines. BI-RADS Category 1 - Negative Breast Density - Category B - Scattered areas of fibroglandular density Breast density category C or D implies that the patient has dense breast tissue. Dense breast tissue is very common and is not abnormal but dense breast tissue can make it harder to find cancer on a ma mmogram. Also, dense breast tissue may increase their breast cancer risk. This information about the result of the mammogram report was provided to the patient to raise their awareness. Use this report when you speak with the patient about their risks for breast cancer, which includes their family hist ory. At that time, you may recommend for more screening tests (Ultrasound or MRI) as they might be us eful based on their risk. A negative radiographic report should not delay biopsy if a dominant or clinically suspicious mass is present. Up to ten percent of cancers are not identified on mammography. A negative report may reinforce clinical impression. Adenosis and dense breasts may obscure an underlying neoplasm. False positive reports average 6 to 10%. Patient will receive a letter notifying them of these results.
== END ==
PROVIDERS: PCP Nurse Practitioner Family; Visit Provider Nurse Practitioner Family
DX: Z12.31 Encounter for screening mammogram for malignant neoplasm of breast (principal)
CPT/HCPCS: 77063; 77067

== ENCOUNTER 2024-02-01 00:42 | Outpatient (CLI) | payer BC, SELFPAY ==
--- NOTE | 2024-02-01 | DI.US_ITS ---
Exam(s) US PELVIS TRANSVAGINAL EXAM: US PELVIS TRANSVAGINAL CLINICAL HISTORY: CYST OF OVARY, N83.209 TECHNIQUE: Transabdominal and transvaginal imaging was performed using standard protocol. COMPARISON: CT CT ABDOMEN PELVIS W from 09/25/2019 US US PELVIS TRANSVAGINAL from 12/06/2021 FINDINGS: UTERUS: Anteverted. 6.1 x 3.1 x 4.3 cm Endometrium: 2 mm. Small amount of fluid, 1 millimeter thickness within endometrium. Myometrium: 3 small fibroids the largest measuring 2 cm. Cervix: Unremarkable. OVARIES: Right: Cyst or mass: Stable size and appearance of right ovarian cyst from 2019. Cysts measured today at 3.8 x 3.9 x 2.3 cm. Left: Cyst or mass: None. DOPPLER: Color: Symmetric and uniform flow to both ovaries. No hyperemia. CUL-DE-SAC: Free fluid: None. IMPRESSION: 1. Normal size uterus. Thirty small fibroids. Trace fluid in the endometrium. No focal endometrial ab normality or endometrial thickening.. 2. Stable appearance of right ovarian cyst since 2019. DATA REPOSITORY:
--- NOTE | 2024-02-01 | DI.MRI_ITS ---
Exam(s) MR ABDOMEN WO/W EXAM: MR ABDOMEN WO/W CLINICAL HISTORY: COMPLEX RENAL CYST, N28.1 TECHNIQUE: Multiplanar multisequence MRI of the Abdomen was performed. CONTRAST MATERIAL: IV Contrast: 10 mL of Dotarem contrast administered. COMPARISON: CT CT ABDOMEN PELVIS W from 09/25/2019 US US RENAL from 01/04/2024 FINDINGS: The exam is mildly limited by motion artifact. Liver: Normal size. Multiple liver cysts are again noted. Pancreas: Unremarkable. Gallbladder and Bile Ducts: Unremarkable. Adrenals: Unremarkable. Kidneys: Bilateral renal cysts again noted. The recent ultrasound the questioned area of nodularity i n the large cyst at the lower pole of the right kidney. No area of nodularity or significant septati on is demonstrated on the current exam. The remaining renal cysts also appear simple. Spleen: Unremarkable. Aorta: Unremarkable. Soft Tissues: Unremarkable. Bone: Unremarkable. Lymph Nodes: Unremarkable. Lung bases: No evidence of effusions. No gross areas of consolidation. IMPRESSION: No area of nodularity is demonstrated in the large cysts noted at the lower pole of the right kidney. There are multiple right simple appearing renal cysts are all simple appearing hepatic cysts. DATA REPOSITORY:
[2024-02-01] MEDS: Normal Saline - Diluent 50 ML VIAL 25 ML IJ (08:28)
[2024-02-01] MEDS: Gadoterate meglumine 20 ML VIAL 10 ML IVP (08:29)
== END 2024-02-01 01:02 ==
LOC: DI 00:42
PROVIDERS: PCP Nurse Practitioner Family; Visit Provider Nurse Practitioner Family
DX: N28.1 Cyst of kidney, acquired (principal); N83.201 Unspecified ovarian cyst, right side
CPT/HCPCS: 74183; 76830; 76856

== ENCOUNTER 2024-04-03 10:42 | Outpatient (CLI) | payer BC, SELFPAY ==
--- NOTE | 2024-04-03 13:42 | DI.RAD_ITS ---
Exam(s) XR CHEST 2V PA LATERAL EXAM: XR CHEST 2V PA LATERAL CLINICAL HISTORY: Dyspnea, R06.00 TECHNIQUE: 2D digital imaging was performed. Two views. COMPARISON: No exams were available for comparison FINDINGS: HEART: Normal size. Aorta: Not dilated. PULMONARY VASCULATURE: Normal. MEDIASTINUM: Unremarkable. LUNGS: Clear. PLEURAL SPACE: No pleural effusion or pneumothorax. BONE:Unremarkable for age. SOFT TISSUES: Unremarkable. IMPRESSION: No acute abnormality. DATA REPOSITORY: RADIATION DOSE DELIVERED:
== END 2024-04-03 11:02 ==
LOC: DI 10:42
PROVIDERS: PCP Nurse Practitioner Family; Visit Provider Nurse Practitioner Family
DX: R06.00 Dyspnea, unspecified (principal)
CPT/HCPCS: 71046

== ENCOUNTER 2024-05-30 01:06 | Outpatient (CLI) | payer OTHER, SELFPAY ==
[2024-05-30] MEDS: Levalbuterol HFA 15 GM INH 4 PUFF IH (14:20)
[2024-05-30] MEDS: Inhaler, Assist Device 1 EACH MC (14:20)
--- NOTE | 2024-06-03 16:09 | W.PFT ---
Date of service: 05/30/24 Time of Service: 13:00 Pulmonary Function Test Result Indications: Dyspnea Interpretation Spirometry: No airflow limitation. No significant bronchodilator response. Lung Volumes: Normal lung volumes. Diffusion Capacity: Normal diffusion Airway Pressure: Normal airways resistance Impression Normal pulmonary function testing Clinical Correlation therefore is recommended.
== END 2024-05-30 01:07 | disposition home or self-care (01) ==
PROVIDERS: PCP Nurse Practitioner Family; Visit Provider Student in an Organized Health Care Education/Training Program
DX: R06.00 Dyspnea, unspecified (principal)
CPT/HCPCS: 94060; 94726; 94729

== ENCOUNTER 2024-10-20 13:01 | Outpatient (REF) | payer MEDICARE, OTHER, SELFPAY ==
--- NOTE | 2024-10-17 15:15 | PAPFT_PTH ---
PATIENT: Leonor Wallace LOC: [facility]#:[id number] AGE/SX: 64/F ROOM: RE10/20/[address]: Chanelle Sesay : 1960 BED: DIS: 10/20/2024 SPEC #: [id number] RECD: 10/20/24 13:24 STATUS: GRIS REMaddy #: [id number] ANTOINE: 10/17/24 15:[address]: Chanelle Sesay DEPT: [facility] Cytology RECD BY: Britney Crow Tissues: 1 - CX/ENDOCX FOR PAP SMEARS Procedures: PAP THIN PREP/UVM Screening HPV DNA PROBE Comments: [id number] (HPV 16 & 18/45)
[2024-10-17 21:54] LABS: HCT 41.5 % (36.0-46.0); HGB 13.9 g/dL (11.2-15.7); MCH 31.9 pg (27.0-33.0); MCHC 33.5 % (32.0-36.0); MCV 95 fL (80-95); MPV 10.3 fL (8.0-11.0); Platelet Count 259 10^3/uL (130-400); RBC 4.36 10^6/uL (3.93-5.22); RDW 12.5 % (11.7-14.6); RDW-SD 43.8 fL; WBC 8.02 10^3/uL (4.4-10.8)
[2024-10-17 22:05] LABS: ALT 32 U/L (14-59); AST 27 U/L (15-37); Albumin 3.8 g/dL (3.4-5.0); Alkaline Phosphatase 105 U/L (46-116); BUN 16 mg/dL (7-18); Bilirubin, Total 0.5 mg/dL (0.2-1.0); CREATININE 1.1 mg/dL (0.55-1.02); Calcium 9.1 mg/dL (8.5-10.1); Calculated LDL 123 mg/dL (<100); Chloride 103 mmol/L (98-107); Cholesterol 220 mg/dL (<200); Estimated GFR 55.42 (mL/min/1.73m2); Glucose 83 mg/dL (74-106); HDL Cholesterol 69 mg/dL (>or=50); Potassium 4.1 mmol/L (3.5-5.1); Sodium 140 mmol/L (136-145); Total Protein 6.4 g/dL (6.4-8.2); Triglyceride 140 mg/dL (<150)
== END 2024-10-20 13:02 | disposition home or self-care (01) ==
LOC: NCHCN 13:01
PROVIDERS: PCP Nurse Practitioner Family; Visit Provider Nurse Practitioner Family
DX: Z00.00 Encounter for general adult medical examination without abnormal findings (principal); Z12.4 Encounter for screening for malignant neoplasm of cervix
CPT/HCPCS: 80053; 80061; 85027; 88142; 87624

== ENCOUNTER 2024-11-13 00:50 | Outpatient (CLI) | payer MEDICARE, OTHER, SELFPAY ==
--- NOTE | 2024-11-13 | DI.MAMMO_ITS ---
Exam(s) MAMMO SCREENING EXAM: MAMMO SCREENING CLINICAL HISTORY: screening Z12.31 TECHNIQUE: Bilateral full field digital CC and MLO mammographic images were obtained with 3D tomosynthesis and utilizing computer aided detection (CAD). COMPARISON: Comparison is made with prior examinations. FINDINGS: Masses/Architectural Distortion: No suspicious masses or areas of architectural distortion are present. Microcalcifications: No suspicious pleomorphic-type are seen. Skin Thickening/Nipple Retraction: None. IMPRESSION: 1. No significant interval change with no specific features of malignancy noted. 2. Unless there is more urgent need, screening mammography is recommended, as per [employer] guidelines. BI-RADS Category 1 - Negative Breast Density - Category B - There are scattered areas of fibroglandular density. Breast density Category C or D implies that the patient has dense breast tissue. Dense breast tissue can make it harder to find cancer on a mammogram. Dense breast tissue is also associated with an increased risk of breast cancer. This information about the result of the mammogram report was provided to the patient to raise their awareness. Use this report when you speak with the patient about their risks for breast cancer, which includes their family history. At that time, you may recommend additional screening tests (Ultrasound or MRI) as these tests may add significant information. A negative radiographic report should not delay biopsy if a dominant or clinically suspicious mass is present. Up to ten percent of cancers are not identified on mammography. A negative report may reinforce clinical impression. Adenosis and dense breasts may obscure an underlying neoplasm. False positive reports average 6 to 10%. Patient will receive a letter notifying them of these results.
--- NOTE | 2024-11-13 13:40 | DI.MRI_ITS ---
Exam(s) MR BRAIN WO EXAM: MR BRAIN WO CLINICAL HISTORY: INTRACTABLE MIGRAINE,G43.719 TECHNIQUE: Multiplanar multisequence MRI of the brain was performed. COMPARISON: No exams were available for comparison FINDINGS: CEREBRAL PARENCHYMA: There is no evidence of intracranial hemorrhage, mass effect, or shift of midline structures. There are no extra-axial fluid collections. Ventricles are not enlarged or shifted. No evidence of cerebellar tonsillar ectopia. There is no significant focal signal abnormality in the cerebellar hemispheres nor within the sal, midbrain, and thalami. There is no significant abnormal signal abnormality in the periventricular white matter. There is no significant focal signal abnormality evident on diffusion imaging to suggest acute ischemic event. PITUITARY GLAND: No mass nor parasellar abnormality. No obvious abnormality in the cavernous sinuses. FLOW VOIDS: The expected flow void are noted. No evidence of obvious aneurysm nor obvious vascular malformation. Left vertebral artery is dominant. PARANASAL SINUSES: There is circumferential in mild mucosal thickening in both maxillary sinuses as well as in the frontal sinuses and ethmoidal air cells. There is also mucosal thickening in the posterior aspect of the left sphenoid sinus. CIS there is also some fluid in mastoid air cells on the left side. ORBITS: No obvious findings. IMPRESSION: No significant intracranial findings on this noninfused MRI scan of the brain. There is circumferential mucosal thickening in all of the paranasal sinuses as described above. No acute fluid levels evident therein. No bone dehiscence. DATA REPOSITORY:
== END 2024-11-13 01:10 ==
PROVIDERS: PCP Nurse Practitioner Family; Visit Provider Nurse Practitioner Family
DX: G43.719 Chronic migraine without aura, intractable, without status migrainosus (principal)
CPT/HCPCS: 77063; 77067; 70551

== ENCOUNTER 2025-01-15 04:06 | Outpatient (CLI) | payer MEDICARE, OTHER, SELFPAY ==
--- NOTE | 2025-01-15 | DI.MRI_ITS ---
Exam(s) MR CERVICAL SPINE WO EXAM: MR CERVICAL SPINE WO CLINICAL HISTORY: IMPAIRMENT OF BALANCE R26.89 ABNL GAIT AND MOBILITY TECHNIQUE: Multiplanar multisequence MRI of the cervical spine was performed without intravenous contrast. COMPARISON: MR MR BRAIN WO from 11/13/2024 FINDINGS: BONES: Vertebral body heights are maintained. Intervertebral disc spaces are normal. Alignment is normal. There is a hemangioma in the C7 vertebral body. CERVICAL CORD: Craniovertebral junction is unremarkable. The cervical cord is normal size and signal intensity. Perineural cysts are seen on the right at T2 and on the left at C6, T1 and T2. SOFT TISSUES: Unremarkable. C2-3: No disc herniation or bulge is identified. No significant central spinal canal or neural foraminal stenosis. C3-4: Degenerative changes of the left uncovertebral joint are present causing moderate left neural foraminal stenosis. There is no significant central spinal canal or right neural foraminal stenosis. No focal disc bulge is seen. C4-5: There is prominence of the right uncovertebral joint causing marked right neural foraminal stenosis. There is mild prominence of the osteophyte disc complex. No significant central spinal canal or left neural foraminal stenosis is present. C5-6: There is mild prominence of the osteophyte disc complex at this level. There is prominence of the uncovertebral joints bilaterally causing mild bilateral neural foraminal narrowing. There is no significant central spinal canal stenosis. C6-7: There is mild prominence of the left uncovertebral joint causing mild left neural foraminal narrowing. No significant disc protrusion is seen. There is no central spinal canal or right neural foraminal stenosis at this level. C7-T1: No disc herniation or bulge is identified. No significant central spinal canal or neural foraminal stenosis IMPRESSION: 1. Multilevel degenerative changes in the cervical spine. The findings are most marked at C4-C5 where there is marked right neural foraminal stenosis. 2. Other levels involved include C3-C4, C5-C6 and C6-C7. Please see the above discussion for complete details. 3. Several bilateral perineural cysts in the lower cervical and upper thoracic spine. DATA REPOSITORY:
== END 2025-01-15 04:26 ==
LOC: DI 04:06
PROVIDERS: PCP Nurse Practitioner Family; Visit Provider Nurse Practitioner Family
DX: M48.02 Spinal stenosis, cervical region (principal)
CPT/HCPCS: 72141

== ENCOUNTER 2025-02-23 03:20 | Outpatient (CLI) | payer MEDICARE, OTHER, SELFPAY ==
--- NOTE | 2025-02-23 08:50 | DI.US_ITS ---
Exam(s) US ABDOMEN LIMITED EXAM: US ABDOMEN LIMITED CLINICAL HISTORY: CYSTIC LIVER DISEASE, Q44.6 TECHNIQUE: Ultrasound abdomen performed using standard protocol. COMPARISON: CT CT ABDOMEN PELVIS W from 09/25/2019 US US ABDOMEN LIMITED from 01/04/2024 FINDINGS: PANCREAS: Normal where visualized. LIVER: Normal. Hepatopetal flow in the Portal Vein. The liver measures in 13.2 cm length. There are few hepatic cysts. The largest is in the right lobe measures 3.2 x 4.4 x 3.1 cm. There is a 1.4 x 1.2 x 1.0 cm simple cyst in the left lobe of the liver. GALLBLADDER: No evidence of cholelithiasis. No evidence of wall thickening. No pericholecystic fluid identified. BILIARY SYSTEM: Common bile duct measures < 7 mm. No intrahepatic biliary ductal dilation. MILLER'S SIGN: Negative. RIGHT KIDNEY: The kidney is enlarged secondary to the cysts. No evidence of renal calculi. No evidence of hydronephrosis. There is a 7.0 x 6.3 x 7.0 cm superior pole cyst. There is a 9.8 x 7.1 x 9.8 cm inferior pole cyst with a thin septation. No follow-up is recommended. ASCITES: None seen. IMPRESSION: 1. Simple hepatic cysts. The largest measures 3.2 x 4.4 x 3.1 cm. 2. Right renal cysts. The largest is in the inferior pole and measures 9.8 x 7.1 x 9.8 cm. DATA REPOSITORY:
== END 2025-02-23 03:40 ==
PROVIDERS: PCP Nurse Practitioner Family; Visit Provider Nurse Practitioner Family
DX: Q44.6 Cystic disease of liver (principal)
CPT/HCPCS: 76705